=== PATIENT | female | born 1950 | race Caucasian/White ===

== ENCOUNTER → 2018-09-24 09:38 | Outpatient (CLI) | payer MEDICARE, SELFPAY ==
[2018-09-24 12:27] LABS: Anion Gap 3 (5-15); BUN 24 mg/dL (7-18); BUN/Creat Ratio 19.4 RATIO (10-20); Calcium,Total 9.1 mg/dL (8.5-10.1); Chloride 105 mmol/L (98-107); Cholesterol 188 mg/dL (200); Creatinine, Serum 1.24 mg/dL (0.55-1.02); EST Glomerular Filtration Rate 46 mL/min (>60); Est Glom Filt Rate - Afr Amer 55 mL/min (>60); Glucose 85 mg/dL (74-106); High Density Lipoprotein 60 mg/dL; Potassium 4.3 mmol/L (3.5-5.1); Sodium Level 136 mmol/L (136-145); Thyroid Stim Hormone (TSH) 2.36 uIU/mL (0.358-3.74); Triglycerides 88 mg/dL; Very Low Density Lipoprotein 18 mg/dL (5-40)
[2018-09-24 12:49] LABS: Vitamin D,25 Hydroxy 14.2 ng/mL (29.95-100.01)
== END ==
PROVIDERS: Family Provider Family Medicine; PCP Family Medicine; Referring Provider Family Medicine; Visit Provider Family Medicine
DX: F32.9 Major depressive disorder, single episode, unspecified (principal); E55.9 Vitamin D deficiency, unspecified; I51.9 Heart disease, unspecified
CPT/HCPCS: 36415; 80048; 80061; 82306; 84443

== ENCOUNTER → 2018-10-22 08:52 | Outpatient (CLI) | payer MEDICARE, MEDICAID, SELFPAY ==
[2018-10-06 14:04] VITALS: BMI 20.6
--- NOTE | 2018-10-22 08:57 | ART_ITS ---
Reason For Study: PVD Procedure A bilateral lower extremity continuous wave Doppler with analog waveform analysis,segmental pressures,and ankle brachial indexes without exercise. Left Segmental Pressures Left brachial= 164mmHg. Left thigh = 119mmHg. Left calf = 104mmHg. Left posterior tibial artery = 105mmHg. Left dorsalis pedis artery = 99mmHg. Left digit = 89 mmHg. Right Segmental Pressures Right brachial= 133mmHg. Right thigh = 138mmHg. Right calf = 108mmHg. Right posterior tibial artery = 116mmHg. Right dorsalis pedis artery = 111mmHg. Right digit = 96 mmHg. The right dorsalis pedis waveforms are biphasic. The right posterior tibial artery waveforms are biphasic. Indices The right ankle brachial index by the dorsalis pedis is 0.68. The right ankle brachial index by the posterior tibial artery is 0.71. The right digital-brachial index is 0.59. The left ankle brachial index by the dorsalis pedis is 0.60. The left ankle brachial index by the posterior tibial artery is 0.64. The left digital-brachial index is 0.54. Interpretation Summary 1. Right mild arterial occlussive disease with ROMAINE 0.71. 2. Left moderate arterial occlussive disease with ROMAINE 0.64. Ordering Physician: Valdemar Muñoz Referring Physician: Wyatt Dumont Performed By: Margarita Hay RVT
--- NOTE | 2018-10-22 08:57 | ECHOD_ITS ---
Reason For Study: PHTN Procedure This was a 2D Doppler, Color Flow transthoracic echocardiogram. Exam performed in department. Left Ventricle Normal size and thickness. The estimated ejection fraction is 75 %. Normal diastology for age. No regional wall motion abnormalities noted. Right Ventricle Normal size and thickness. Normal systolic function. Atria The left atrium is moderately enlarged. Normal right atrium. Normal atrial septum. Mitral Valve The mitral valve is structurally normal. No prolapse or stenosis seen. Tricuspid Valve Normal tricuspid valve. Mild (1+) tricuspid valve insufficiency. Right ventricular systolic pressure estimated to be 49 mmHg. Moderate pulmonary hypertension. Aortic Valve Trisinus/trileaflet aortic valve. Mild focal aortic valve thickening. There is no aortic stenosis. Mild (1+) aortic valve insufficiency. Pulmonic Valve Normal pulmonic valve. Trivial pulmonic valve insufficiency. Great Vessels Normal aortic root. Normal arch. Normal inferior vena cava. Inferior vena cava collapse with sniff. Pericardium/Pleural No pericardial effusion. MMode/2D Measurements & Calculations LVIDd: 3.9 cm IVSd: 1.1 cm Ao root diam: 3.0 cm LVIDs: 2.5 cm LVPWd: 1.1 cm RVDd: 2.8 cm FS: 35.3 % LAV(MOD-bp): 63.8 ml EDV(MOD-sp4): 41.0 ml EDV(MOD-sp2): 41.7 ml LAV(MOD-bp) Indexed: 43.3 ml/m2 ESV(MOD-sp4): 16.0 ml EF(MOD-sp2): 66.1 % LAV(MOD-sp2): 56.7 ml EF(MOD-sp4): 61.0 % LAV(MOD-sp4): 73.9 ml SV(MOD-sp4): 25.0 ml SV(MOD-sp2): 27.6 ml LA A4 area: 22.6 cm2 RA A4 area: 13.2 cm2 Time Measurements MV dec time: 0.33 sec Doppler Measurements & Calculations MV E max matt: 98.5 cm/sec Lat Peak E' Matt: 3.0 cm/sec Med Peak E' Matt: 3.4 cm/sec MV A max matt: 109.8 cm/sec E/E' lat: 33.2 E/E' med: 28.8 MV E/A: 0.90 Ao V2 max: 166.8 cm/sec AI max matt: 445.1 cm/sec LV V1 max: 138.5 cm/sec Ao max P.1 mmHg AI max P.3 mmHg LV V1 max P.7 mmHg Ao V2 mean: 120.6 cm/sec AI dec slope: 241.4 cm/sec2 LV V1 mean P.2 mmHg Ao mean P.3 mmHg AI P1/2t: 539.9 msec LV V1 mean: 98.1 cm/sec Ao V2 VTI: 39.0 cm LV V1 VTI: 32.4 cm PA V2 max: 105.7 cm/sec TR max matt: 332.9 cm/sec TR max P.4 mmHg Interpretation Summary The estimated ejection fraction is 75 %. Normal diastology for age. The left atrium is moderately enlarged. Mild (1+) tricuspid valve insufficiency. Right ventricular systolic pressure estimated to be 49 mmHg. Moderate pulmonary hypertension. Mild (1+) aortic valve insufficiency. There is no comparison study available. Ordering Physician: Valdemar Muñoz Referring Physician: Wyatt Dumont Performed By: Yaneli Childress, SOLO, RVT
--- NOTE | 2018-10-22 08:57 | CDU_ITS ---
Reason For Study: Vertigo Rt. Velocities/BP Lt. Velocities/BP Prox CCA 164/11.1 cm/sec. Prox CCA 126.6/11.5 cm/sec. Mid CCA 151/11.1 cm/sec. Mid CCA 133.9/11.5 cm/sec. Dist CCA 140.7/16.3 cm/sec. Dist CCA 143/11.5 cm/sec. Prox ICA 191.7/13.9 cm/sec. Prox ICA 259.7/26.8 cm/sec. Mid ICA 138.9/9.4 cm/sec. Mid ICA 148.5/18.9 cm/sec. Dist ICA 106.9/12.7 cm/sec. Dist ICA 132.9/16.3 cm/sec. Rt. ICA/CCA = 1.3. Lt. ICA/CCA = 1.9. Prox ECA 215.8 cm/sec. Prox ECA 230.4 cm/sec. Lt. Vert. 130.2/9.7 cm/sec. Right Extracranial There is heterogeneous, irregular atherosclerotic plaque noted in the right common carotid artery. There is heterogeneous, irregular atherosclerotic plaque noted in the right internal carotid artery. There is heterogeneous, irregular atherosclerotic plaque noted in the right external carotid artery. Retrograde flow noted in the Rt Vertebral artery. Left Extracranial There is heterogeneous, irregular atherosclerotic plaque noted in the left common carotid artery. There is heterogeneous, irregular atherosclerotic plaque noted in the left internal carotid artery. There is heterogeneous, irregular atherosclerotic plaque noted in the left external carotid artery. Antegrade flow is noted in the left vertebral artery. Procedure Carotid Duplex 36137. Exam performed in department. Interpretation Summary Moderate (50-69%) stenosis right extracranial internal carotid. Moderate (50-69%) stenosis left extracranial internal carotid. Flow within the right verterbral artery is retrograde, consistent with a subclavian steal phenomenon. Flow within the left verterbral artery is antegrade. Ordering Physician: Valdemar Muñoz Referring Physician: Wyatt Dumont Performed By: Margarita Hay RVT
== END ==
PROVIDERS: Family Provider Family Medicine; PCP Family Medicine; Referring Provider Internal Medicine Cardiovascular Disease; Visit Provider Internal Medicine Cardiovascular Disease
DX: I35.1 Nonrheumatic aortic (valve) insufficiency (principal); I27.20 Pulmonary hypertension, unspecified; R09.89 Other specified symptoms and signs involving the circulatory and respiratory systems; I77.1 Stricture of artery; I25.2 Old myocardial infarction; I73.9 Peripheral vascular disease, unspecified; I25.10 Atherosclerotic heart disease of native coronary artery without angina pectoris
CPT/HCPCS: 93306; 93880; 93923

== ENCOUNTER → 2018-11-25 12:53 | Outpatient (CLI) | payer MEDICARE, MEDICAID, SELFPAY ==
[2018-10-06 14:04] VITALS: BMI 20.6
== END ==
PROVIDERS: Family Provider Family Medicine; PCP Family Medicine; Referring Provider Internal Medicine Cardiovascular Disease; Visit Provider Internal Medicine Cardiovascular Disease
DX: I25.10 Atherosclerotic heart disease of native coronary artery without angina pectoris (principal); I25.2 Old myocardial infarction
CPT/HCPCS: J7040; A4216

== ENCOUNTER → 2018-12-16 06:47 | Outpatient (CLI) | payer MEDICARE, SELFPAY ==
[2018-10-06 14:04] VITALS: BMI 20.6
--- NOTE | 2018-12-16 06:47 | ECHOL_ITS ---
Reason For Study: Chest Pain Procedure This was a limited 2D transthoracic echocardiogram. Exam performed in department. Left Ventricle Severe concentric left ventricular hypertrophy. The estimated ejection fraction is 75 %. Severe LVOT gradient of 119 mm HG. No regional wall motion abnormalities noted. Right Ventricle Normal size and thickness. Normal systolic function. Atria The left atrium is severely enlarged. Normal right atrium. Normal atrial septum. Mitral Valve The mitral valve is structurally normal. No prolapse or stenosis seen. Tricuspid Valve Normal tricuspid valve. Unable to estimate RV systolic pressure due to insufficient tricuspid regurgitant envelope. Aortic Valve Trisinus/trileaflet aortic valve. Mild diffuse aortic valve thickening. There is no aortic stenosis. Mild (1+) aortic valve insufficiency. Pulmonic Valve Normal pulmonic valve. Great Vessels Normal aortic root. Normal arch. Normal inferior vena cava. Pericardium/Pleural No pericardial effusion. MMode/2D Measurements & Calculations LVIDd: 3.0 cm IVSd: 1.7 cm LVAd ap4: 20.2 cm2 LVIDs: 1.6 cm LVPWd: 1.4 cm EDV(MOD-sp4): 47.1 ml FS: 46.9 % EDV(sp4-el): 50.8 ml LVAs ap4: 8.3 cm2 ESV(MOD-sp4): 11.4 ml ESV(sp4-el): 10.4 ml EF(MOD-sp4): 75.8 % EF(sp4-el): 79.6 % SV(MOD-sp4): 35.7 ml SV(sp4-el): 40.5 ml Interpretation Summary Severe concentric left ventricular hypertrophy. The estimated ejection fraction is 75 %. Severe LVOT gradient of 119 mm HG. The left atrium is severely enlarged. Unable to estimate RV systolic pressure due to insufficient tricuspid regurgitant envelope. Mild (1+) aortic valve insufficiency. There is no aortic stenosis. Compared to echo report dated 10/22/2018, LV function is now hyperdynamic with severe LVOT gradient of 119 mm Hg. noted on today's exam. Stress postponed. Ordering Physician: Valdemar Muñoz Referring Physician: Wyatt Dumont Performed By: Terri Moss, SOLO, RVT
--- NOTE | 2018-12-18 16:41 | STRESSREP_ITS ---
Stress Test Report Date: 12/16/2018 Procedure: Pharmacologic stress nuclear imaging study Indications: Chest pain Consent: Per the patient Procedure: The patient underwent pharmacologic (Regadenoson) evaluation with a peak heart rate of 83 beats per minute (54 %predicted maximal heart rate) and a peak blood pressure of 164/64 mmHg. The baseline ECG demonstrated normal sinus rhythm, prior inferior and lateral FL. EKG during lexiscan infusion revealed no significant ischemic change. EKG post infusion revealed no significant ischemic changes [There were no cardiac dysrhythmias pretest, during pharmacologic infusion, or recovery]. [There was no complaint of chest discomfort during pharmacologic infusion or recovery]. The examination was discontinued secondary to completion of protocol. Impression: 1. Lexiscan stress test test is[negative] for Lexiscan infusion induced EKG changes of ischemia. 2. Lexiscan stress test test is negative for Lexiscan infusion induced chest pain. 3. Results of the nuclear portion of the test is as below Myocardial perfusion imaging study: Technique: The patient was injected with 11.1 millicuries of technetium 99m Cardiolite and subsequently rest SPECT Cardiolite nuclear imaging was obtained in the horizontal long, vertical long, and short axis views. The patient underwent pharmacologic (Regadenoson) evaluation. Please see above for details. The patient was injected with 33.7 millicuries of technetium 99m Cardiolite and subsequently stress SPECT Cardiolite nuclear imaging was obtained in the horizontal long, vertical long, and short axis views. A gated Cardiolite study at peak stress was obtained. Interpretation: Rest and stress SPECT Cardiolite nuclear imaging status post realignment, normalization, and attenuation correction demonstrate overall normal myocardial radioisotope uptake. Gated images reveal no wall motion abnormalities. The reported LVEF is greater than 70 %. Impression: 1. There is no evidence of significant ischemia or infarction. 2. Estimated ejection fraction is greater than 70%. This note was generated with [employer] software. It may contain incorrect words, spelling, and punctuation that were not noted in checking the note before signing.
== END ==
PROVIDERS: Family Provider Family Medicine; PCP Family Medicine; Referring Provider Internal Medicine Cardiovascular Disease; Visit Provider Internal Medicine Cardiovascular Disease
DX: R07.9 Chest pain, unspecified (principal); I25.10 Atherosclerotic heart disease of native coronary artery without angina pectoris; I25.2 Old myocardial infarction; I35.1 Nonrheumatic aortic (valve) insufficiency
CPT/HCPCS: 78452; 93017; 93308; A9500; A4216; J2785